=== PATIENT | female | born 1965 | race Caucasian/White ===

== ENCOUNTER 2018-11-18 20:07 | Emergency (ER) | payer OTHER ==
[~2018-11-18] VITALS: Ht 154.9 cm; Wt 52.1 kg
[~2018-11-18 20:07] MED LIST: ACET500C5 PO; CYCL10TA7 PO; IBUP-1542 PO
[2018-11-18 20:27] VITALS: BP 105/54; PULSE 84; RESP 18; Ht 154.9 cm; Wt 52.1 kg
--- NOTE | 2018-11-18 20:50 | ERD ---
ER Documentation Chief Complaint Chief Complaint h/o right fracture femur, c/o right leg pain x 2 weeks HPI 53-year-old female presented to ED for right leg pain. Patient states her leg is been hurting over the last 2 weeks and it feels stiff and achy. Patient has a history of a right intramedullary nail placement for a femur fracture 2 years ago. Patient denies any new recent traumatic injury and states that this is happened before but symptoms improved with Motrin. Patient denies any allergies to medication and states the pain is a 7 out of 10. ROS All systems reviewed and are negative except as per history of present illness. Medications Home Meds Active Scripts Acetaminophen* (Tylophen*) 500 Mg Capsule, 2 CAP PO Q8H PRN for PAIN AND OR ELEVATED TEMP, #20 CAP Prov:THIEN RAHMAN PA-C 11/18/18 Ibuprofen* (Motrin*) 600 Mg Tab, 600 MG PO Q6, #30 TAB Prov:THIEN RAHMAN PA-C 11/18/18 Cyclobenzaprine Hcl* (Cyclobenzaprine Hcl*) 10 Mg Tablet, 10 MG PO TID, #15 TAB Prov:THIEN RAHMAN PA-C 11/18/18 Allergies Allergies: Coded Allergies: No Known Allergy (Unverified , 02/03/14) PMhx/Soc Medical and Surgical Hx: pt denies Medical Hx Hx Alcohol Use: No Hx Substance Use: No Hx Tobacco Use: No Smoking Status: Never smoker FmHx Family History: No diabetes, No coronary disease, No other Physical Exam Vitals Vital Signs Date Temp Pulse Resp B/P (MAP) Pulse Ox O2 O2 Flow FiO2 Time Delivery Rate 11/18/18 98.2 84 18 105/54 100 20:27 (71) Physical Exam GENERAL: Moderate Distress CHEST: Clear to auscultation bilaterally. There are no rales, wheezes or rhonchi. HEART: Regular rate and rhythm. No murmurs, clicks, rubs or gallops. EXTREMITIES: Non-erythematous right leg with good range of motion no pain to palpation, good distal pulses, motor or sensory intact. There is no difference in the appearance of the legs bilaterally no signs of open fractures or exposure of soft tissue. No skin pallor noted. Patient has intact gross motor function and distal pulses are present and equal bilaterally. NEUROLOGIC: Motor strength is 5 out of 5 strength bilateral lower extremities. Sensation grossly intact. Procedures/MDM ED course: The patient was stable throughout the ED course. The patient and/or family informed of laboratory and diagnostic imaging results throughout the ED course. Medical decision makin-year-old female presented to ED for right leg pain. Patient had intramedullary nail placed in 2 years ago. Patient denies any new recent traumatic injury and is afebrile. There is no signs of skin rash, no fluctuant palpable masses. Patient has good pulse motor sensation in the distal aspect of the extremity. Patient's vitals are within normal limits. Patient denies any shortness of breath or chest pain. At this time I have low suspicion for cellulitis, fracture, dislocation, DVT, PE. I advised the patient she probably needs to follow-up with her primary care provider and get into physical therapy if symptoms persist. I am sending the patient home with a prescription for cyclobenzaprine Motrin and acetaminophen. Advised patient if symptoms worsen return to ER immediately otherwise continue with follow-up care with a primary care provider. All questions were answered upon discharge and patient is in agreement to the treatment plan Prescription for home: Acetaminophen Motrin Cyclobenzaprine I have discussed with the patient proper use and common side effects to expert with the medication . I advised the patient/family to speak with the pharmacist dispensing the medication to be advised of any potential drug interactions with other medication or supplements they may be taking. Discharge: At this time, patient is stable for discharge and outpatient management. I have instructed the patient to follow-up with his\her primary care physician in 1 to 2 days. I have discussed with the patient the possibility of needing to see a specialist for further work-up and imaging studies if symptoms persist. I have instructed the patient to promptly return to the ER for any new or worsening symptoms including increased pain, fever, nausea, vomiting, weakness or LOC. The patient and\or family expressed understanding of and agreement with this plan. All questions were answered. Home care instructions were provided. Disclaimer: Inadvertent spelling and grammatical errors are likely due to EHR\dictation software use and do not reflect on the overall quality of patient care. Also, please note that the electronic time recorded on the note does not necessarily reflect the actual time of the patient encounter. Departure Diagnosis: Primary Impression: Pain of right leg Additional Impression: Muscle spasm Condition: Stable Patient Instructions: Arthralgia Referrals: [facility] YOU HAVE RECEIVED A MEDICAL SCREENING EXAM AND THE RESULTS INDICATE THAT YOU DO NOT HAVE A CONDITION THAT REQUIRES URGENT TREATMENT IN THE EMERGENCY DEPARTMENT. FURTHER EVALUATION AND TREATMENT OF YOUR CONDITION CAN WAIT UNTIL YOU ARE SEEN IN YOUR DOCTORS OFFICE WITHIN THE NEXT 1-2 DAYS. IT IS YOUR RESPONSIBILITY TO MAKE AN APPOINTMENT FOR FOLOW-UP CARE. IF YOU HAVE A PRIMARY DOCTOR --you should call your primary doctor and schedule an appointment IF YOU DO NOT HAVE A PRIMARY DOCTOR YOU CAN CALL OUR PHYSICIAN REFERRAL HOTLINE AT IF YOU CAN NOT AFFORD TO SEE A PHYSICIAN YOU CAN CHOSE FROM THE FOLLOWING [facility] [address] [facility] [address] [facility] [facility] [address] [facility] [facility] [facility] [address] [facility] [facility] [address] [facility]. [facility]. [address] [facility] [facility] YOU HAVE RECEIVED A MEDICAL SCREENING EXAM AND THE RESULTS INDICATE THAT YOU DO NOT HAVE A CONDITION THAT REQUIRES URGENT TREATMENT IN THE EMERGENCY DEPARTMENT. FURTHER EVALUATION AND TREATMENT OF YOUR CONDITION CAN WAIT UNTIL YOU ARE SEEN IN YOUR DOCTORS OFFICE WITHIN THE NEXT 1-2 DAYS. IT IS YOUR RESPONSIBILITY TO MAKE AN APPOINTMENT FOR FOLOW-UP CARE. IF YOU HAVE A PRIMARY DOCTOR --you should call your primary doctor and schedule and appointment IF YOU DO NOT HAVE A PRIMARY DOCTOR YOU CAN CALL OUR PHYSICIAN REFERRAL HOTLINE AT . IF YOU CAN NOT AFFORD TO SEE A PHYSICIAN YOU CAN CHOSE FROM THE FOLLOWING [facility] INSTITUTIONS: [facility] [address] [place] [address] [facility] [address] [place] [address] [facility] [address] [place] [address] [facility] Care 7 a.m.- 11 p.m. Every Day of the Week NO APPOINTMENT OR AUTHORIZATION NEEDED Additional Instructions: Call your primary care doctor TOMORROW for an appointment during the next 1-2 days.See the doctor sooner or return here if your condition worsens before your appointment time. THIEN RAHMAN PA-C Nov 18, 2018 20:50
== END 2018-11-18 20:53 | disposition home or self-care (01) ==
LOC: FTE 20:07
DX: M79.604 Pain in right leg (principal); M62.838 Other muscle spasm
CPT/HCPCS: 99283